=== PATIENT | male | born 1990 ===

== ENCOUNTER 2017-05-09 15:30 | Emergency (ER) | payer OTHER ==
[2017-05-09 15:42] VITALS: BP 118/67
--- NOTE | 2017-05-09 16:25 | ED ---
Throat Pain/Nasal Congestion - HPI Summary HPI Summary: 26 yr old male with runny nose, cough, congestion, and malaise. he has two sons with strep throat. He does not have a sore throat, but is wondering if he has strep as well. denies fever, chest pain, sob. He has no other complaints. - History of Current Complaint Chief Complaint: UCRespiratory Time Seen by Provider: 05/09/17 16:05 - Allergies/Home Medications Allergies/Adverse Reactions: Allergies Allergy/AdvReac Type Severity Reaction Status Date / Time No Known Allergies Allergy Verified 05/09/17 15:41 Home Medications: Home Medications Sertraline* [Zoloft*] 50 mg PO DAILY 05/09/17 [History Confirmed 05/09/17] PMH/Surg Hx/FS Hx/Imm Hx Previously Healthy: Yes Infectious Disease History: No Infectious Disease History: Denies: Traveled Outside the [place] in Last 30 Days - Family History Known Family History: Positive: None - Social History Alcohol Use: None Substance Use Type: Reports: None Smoking Status (MU): Never Smoked Tobacco Review of Systems Positive: Fatigue Positive: Nasal Discharge Positive: Cough All Other Systems Reviewed And Are Negative: Yes Physical Exam Triage Information Reviewed: Yes Vital Signs On Initial Exam: Initial Vitals Temp Pulse Resp BP Pulse Ox 98.9 F 68 14 118/67 100 05/09/17 15:38 05/09/17 15:38 05/09/17 15:38 05/09/17 15:38 05/09/17 15:38 Vital Signs Reviewed: Yes Appearance: Positive: Well-Appearing, No Pain Distress Skin: Positive: Warm, Skin Color Reflects Adequate Perfusion Head/Face: Positive: Normal Head/Face Inspection Eyes: Positive: EOMI, Conjunctiva Clear ENT: Positive: Normal ENT inspection, Pharynx normal, Nasal congestion, TMs normal Dental: Negative: Cervical Lymphadenopathy Neck: Positive: Supple, Nontender Respiratory/Lung Sounds: Positive: Clear to Auscultation, Breath Sounds Present Cardiovascular: Positive: RRR. Negative: Murmur Abdomen Description: Positive: Nontender Musculoskeletal: Positive: Strength/ROM Intact Neurological: Positive: Sensory/Motor Intact, Alert, Oriented to Person Place, Time, CN Intact II-III Psychiatric: Positive: Normal - Chase Coma Scale Best Eye Response: 4 - Spontaneous Best Motor Response: 6 - Obeys Commands Best Verbal Response: 5 - Oriented Diagnostics - Vital Signs Vital Signs Temp Pulse Resp BP Pulse Ox 05/09/17 15:38 98.9 F 68 14 118/67 100 - Laboratory Lab Statement: Any lab studies that have been ordered have been reviewed, and results considered in the medical decision making process. EENT Course/Dx - Course Course Of Treatment: neg rapid strep. DC home URI - Diagnoses Provider Diagnoses: URI (upper respiratory infection) Discharge - Discharge Plan Condition: Good Disposition: HOME Patient Education Materials: Upper Respiratory Infection (ED) Referrals: KAYLA Page [Primary Care Provider] -
== END 2017-05-09 17:01 | disposition home or self-care (01) ==
LOC: UCCORT 15:30
DX: J06.9 Acute upper respiratory infection, unspecified (principal)
CPT/HCPCS: 87651; 99211; G0463